=== PATIENT | female | born 1965 | race Caucasian/White ===

== ENCOUNTER 2016-10-11 08:46 | Emergency (ER) | payer MEDICARE, OTHER ==
--- NOTE | ~2016-10-11 | CR58 ---
[facility] A Service of [facility] / [facility] RADIOLOGY TEXT RESULTS PATIENT: KYA JULIAN LOCATION: [facility] : [birth year] UNIT #: [id number] AGE: [address]: Marisabel Looney SEX: F ORDER DR: [id number] [facility] [address] [place], [place] [address] [id number] E MR#: [id number] #: [id number] NAME: KYA JULIAN : 1965 SEX: F STUDY DATE/TIME: 10/11/2016 8:55 UNIT: [facility] ROOM: STUDY DESCRIPTION: CR Cervical Spine 2 or 3 Views Attending Physician: Marisabel Looney P.A.-C. Referring Physician: Iyv Self Referred Ordering Physician: Marisabel Looney P.A.-C. Primary Care Physician: Santiago Coleman M.D. MEDICAL IMAGING REPORT This report is preliminary unless electronic signature is present EXAM Cervical spine, 10/11/2016. HISTORY Neck pain and left upper extremity radiculopathy intermittently for 2 weeks, worsening over time. No trauma. TECHNIQUE 5 views of the cervical spine were obtained. COMPARISONS No comparison. FINDINGS No fracture or subluxation is seen. The C7 vertebral body is not well visualized in this study. Disc spaces are grossly normal. There may be some degenerative disc disease at C5-C6. Prevertebral soft tissues are normal. IMPRESSION Suboptimal evaluation of C7. Alignment appears normal. There is degenerative disc disease at C5-C6. Findings could be further assessed with nonemergent cervical spine MRI, if indicated. Dictated by... Giovanny Burnham Jr., M.D. THIS IS AN ELECTRONICALLY VERIFIED REPORT Giovanny Burnham Jr., M.D. at 10/11/2016 4:47 PM BIBIANA/odell [facility] A Service of [facility] / [facility] RADIOLOGY TEXT RESULTS PATIENT: KYA JULIAN LOCATION: [facility] : [birth year] UNIT #: [id number] AGE: [address]: Marisabel Looney SEX: F ORDER DR: TD: 10/11/2016 12:07 JOB #: [id number] MEDICAL IMAGING REPORT Page 1 of 1 COPY
[~2016-10-11 08:46] MED LIST: ABILIFY5 MG PO; ADDERALL PO; AMBIEN PO; BACTRIM 400-801 TA1; BACTRIM DS TABL1 TA1 PO; CLEOCIN HCL300 M1 PO; CLEOCIN-T60 GM TP; DAPTOMYCIN IV; DIFLUCAN PO; DISCONTINUED MED; HYDRALAZINE HCL25 MG PO; IMITREX PO; KLONOPIN1 MG PO; LEVAQUIN PO; LYRICA PO; LYRICA100 MG PO; MS CONTIN30 MG PO; NAPROSYN-EC500 M1 PO; NAPROSYN500 MG PO; NORCO 10-325 TA1 TAB PO; OXYCODONE HCL40 MG PO; PERCOCET 5-3251 TAB PO; PERCOCET 7.5/321 TAB PO; PHENERGAN25 M1 PO; PHENERGAN25 MG PO; SALINE WOUND W210 M1; ZANAFLEX4 M1 PO
== END 2016-10-11 09:36 | disposition home or self-care (01) ==
LOC: CFTX 08:46
DX: M54.12 Radiculopathy, cervical region (principal); G43.909 Migraine, unspecified, not intractable, without status migrainosus; J32.9 Chronic sinusitis, unspecified; Z86.14 Personal history of Methicillin resistant Staphylococcus aureus infection; Z86.718 Personal history of other venous thrombosis and embolism; Z88.8 Allergy status to other drugs, medicaments and biological substances; Z88.0 Allergy status to penicillin; Z88.5 Allergy status to narcotic agent; F17.210 Nicotine dependence, cigarettes, uncomplicated
CPT/HCPCS: 72040; 96372; 99283; J2270; J2550

== ENCOUNTER 2016-10-12 06:46 | Emergency (ER) | payer MEDICARE, OTHER | END 2016-10-12 06:52 | disposition home or self-care (01) | LOC: CED 06:46 | DX: M54.12 Radiculopathy, cervical region (principal); F17.210 Nicotine dependence, cigarettes, uncomplicated; Z88.5 Allergy status to narcotic agent; Z88.8 Allergy status to other drugs, medicaments and biological substances | CPT/HCPCS: 99282; J2550 ==